=== PATIENT | female | born 1995 | race Caucasian/White ===

== ENCOUNTER 2020-12-18 20:07 | Emergency (ER) | payer OTHER ==
[~2020-12-18] VITALS: Ht 157.5 cm; Wt 104.3 kg
[~2020-12-18 20:07] MED LIST: BIRTH CONTROL; IBUPROFEN 800800 M1 PO; PRENATAL; PRENATAL PO; VALTREX 500 MG500 M1 PO; ZANTAC 150MG T150 M1 PO
[2020-12-18 20:13] VITALS: BP 122/80
[2020-12-18 20:43] LABS: ABSOLUTE NEUTROPHILS 8.6 thou/uL (1.4-8.2); BASOPHILS 1.1 % (0.0-2.0); EOSINOPHILS 4.4 % (0.0-3.0); HEMATOCRIT 33.2 % (37.0-47.0); HEMOGLOBIN 10.6 gm/dL (12.0-15.0); LYMPHOCYTES 16.6 % (24.0-44.0); MONOCYTES 6.8 % (1.0-8.0); PLATELET COUNT 448 thou/uL (150-400); POLYS 71.1 % (36.0-66.0); RBC 4.43 mil/uL (4.20-5.00); RDW 17.4 % (10.5-14.5)
[2020-12-18 20:44] LABS: URINE BILIRUBIN NEGATIVE (Negative); URINE BLOOD 2+ (Negative); URINE CLARITY CLEAR; URINE COLOR YELLOW; URINE GLUCOSE-RANDOM* NEGATIVE (Negative); URINE KETONES NEGATIVE (Negative); URINE NITRITE-REFLEX NEGATIVE (Negative); URINE PROTEIN (DIPSTICK) 2+ (Negative); URINE SPECIFIC GRAVITY >= 1.030 (1.005-1.035); URINE UROBILINOGEN 0.2 E.U./dl (0.2-1.0)
[2020-12-18 20:50] LABS: CREATININE 0.9 mg/dL (0.6-1.0); POTASSIUM 4.1 mmol/L (3.5-5.1); URINE LEUKOCYTES-REFLEX 1+ (Negative)
[2020-12-18 20:56] LABS: SQUAMOUS 4-10 Moderate /LPF (0-3)
[2020-12-18 20:57] LABS: CASTS None Seen /LPF (None Seen); URINE WBC-REFLEX 6-15 Few /HPF (0-5)
[2020-12-18 20:58] LABS: CRYSTALS None Seen /LPF (None Seen); YEAST-REFLEX Present (None Seen)
[2020-12-18] MEDS ORDERED: MOBIC7.5 MG PO (21:55)
[2020-12-18] MEDS ORDERED: DIFLUCAN100 MG PO (21:56)
[2020-12-18] MEDS ORDERED: CEPHALEXIN500 MG PO (21:56)
== END 2020-12-18 22:10 | disposition home or self-care (01) ==
LOC: ER 20:07
PROVIDERS: Nurse Practitioner
DX: N39.0 Urinary tract infection, site not specified (principal); B37.9 Candidiasis, unspecified